=== PATIENT | female | born 1990 | race American Indian/Alaskan Native ===

== ENCOUNTER 2018-05-29 14:24 | Emergency (ER) | payer OTHER ==
[2018-05-29 14:34] VITALS: BP 118/77
[2018-05-29] MEDS ORDERED: NORCO 5/325 PO ONE (15:44)
[2018-05-29] MEDS ORDERED: MOTRIN PO ONE (15:44)
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
== END 2018-05-29 17:13 | disposition home or self-care (01) ==
LOC: ED 14:24
DX: S40.012A Contusion of left shoulder, initial encounter (principal); V89.2XXA Person injured in unspecified motor-vehicle accident, traffic, initial encounter; Y93.89 Activity, other specified; Y92.488 Other paved roadways as the place of occurrence of the external cause; Y99.8 Other external cause status
CPT/HCPCS: 72040; 99283